=== PATIENT | male | born 1940 | race Caucasian/White ===

== ENCOUNTER 2018-02-17 10:01 | Day surgery (SDC) | payer MEDICARE, BC ==
[2018-02-12 10:55] LABS: BASOPHILS % (AUTO) 0.4 % (0-1); EOSINOPHILS # (AUTO) 0.4 X10'3 (0-0.9); EOSINOPHILS % (AUTO) 5.8 % (0-6); LYMPHOCYTES # (AUTO) 1.6 X10'3 (1.1-4.8); LYMPHOCYTES % (AUTO) 21.2 % (21-51); MEAN CORPUSCULAR HEMOGLOBIN 30.8 PG (27.0-31.0); MEAN CORPUSCULAR HGB CONC 34.3 % (33.0-36.5); MEAN CORPUSCULAR VOLUME 89.8 FL (78-98); MEAN PLATELET VOLUME 8.3 FL (7.4-10.4); MONOCYTES # (AUTO) 0.6 X10'3 (0-0.9); MONOCYTES % (AUTO) 7.7 % (2-12); NEUTROPHILS # (AUTO) 4.8 X10'3 (1.8-7.7); NEUTROPHILS % (AUTO) 64.9 % (42-75); PRE OP HEMATOCRIT 38.8 % (42.0-52.0); PRE OP HEMOGLOBIN 13.3 g/dL (14.0-17.9); PRE OP PLATELET COUNT 234 X10'3 (140-440); RED BLOOD COUNT 4.32 X10'6 (4.70-6.10); RED CELL DISTRIBUTION WIDTH 13.9 % (11.5-14.5)
[2018-02-12 11:07] LABS: PRE OP INR 1.1 INR; PRE OP PROTIME 11.4 SECONDS (9.0-12.0)
[2018-02-12 11:08] LABS: ALBUMIN 3.2 G/DL (3.4-5.0); BLOOD UREA NITROGEN 26 MG/DL (7-18); BUN/CREATININE RATIO 12.5 (5.4-32.0); CALCIUM 8.9 MG/DL (8.5-10.1); CHLORIDE 104 MMOL/L (99-107); CREATININE 2.08 MG/DL (0.60-1.10); PRE OP ANION GAP 8 (8-16); PRE OP GLUCOSE 189 MG/DL (70-104); PRE OP POTASSIUM 3.8 MMOL/L (3.4-5.1); PRE OP SODIUM 140 MMOL/L (135-145); TOTAL CARBON DIOXIDE 28.2 MMOL/L (24-32); eGFR 31 ML/MIN
[~2018-02-17] VITALS: Ht 175.3 cm; Wt 101.5 kg
[~2018-02-17 10:01] MED LIST: ASPI81TA30 PO; ATOR-2 PO; BENA20TA2 PO; FINA5TAB11 PO; LEVO25TA7 PO; METO50TA17 PO; TERA10CA4 PO
[2018-02-17] MEDS ORDERED: AMIO200T57 PO (10:41)
[2018-02-17] MEDS ORDERED: APIX5TAB3 PO (10:41)
[2018-02-17] MEDS ORDERED: SENN-93 PO (10:41)
[2018-02-17] MEDS ORDERED: normal saline 1000ml 1,000 ML IV SCH (10:50)
[2018-02-17] MEDS ORDERED: fentaNYL/PF 50MCG/1 ML 2ML syringe IV ONE (10:50)
[2018-02-17] MEDS ORDERED: MIDAZolam 5mg/ml 2ml vial IV ONE (10:50)
[2018-02-17 11:00] VITALS: BP 113/46
== END 2018-02-17 19:38 | disposition home or self-care (01) ==
LOC: SSTAY O 10:01
PROVIDERS: ATTEND Internal Medicine Interventional Cardiology
DX: I48.3 Typical atrial flutter (principal); I35.0 Nonrheumatic aortic (valve) stenosis; I10 Essential (primary) hypertension; I25.10 Atherosclerotic heart disease of native coronary artery without angina pectoris; E78.00 Pure hypercholesterolemia, unspecified; G89.29 Other chronic pain; I25.2 Old myocardial infarction; I70.211 Atherosclerosis of native arteries of extremities with intermittent claudication, right leg; E11.59 Type 2 diabetes mellitus with other circulatory complications; Z53.8 Procedure and treatment not carried out for other reasons; Z95.1 Presence of aortocoronary bypass graft; Z86.74 Personal history of sudden cardiac arrest; Z79.01 Long term (current) use of anticoagulants; Z79.82 Long term (current) use of aspirin; Z87.891 Personal history of nicotine dependence; Z79.899 Other long term (current) drug therapy
CPT/HCPCS: 36415; 80048; 85025; 85610; 85730; 93005; J7030; A4620

== ENCOUNTER 2020-07-04 18:33 | Emergency (ER) | payer MEDICARE, BC ==
[~2020-07-04] VITALS: Ht 177.8 cm; Wt 109.1 kg
[~2020-07-04 18:33] MED LIST changes: +AMIO200T61 PO; +APIX5TAB3 PO; +LIDOcaine 1% W/epiNEPHrine 1:200,000 10ml vial ONE; +SENN-93 PO
[2020-07-04 18:41] VITALS: BP 119/83
== END 2020-07-04 20:39 | disposition home or self-care (01) ==
LOC: ER 18:34
DX: S81.812A Laceration without foreign body, left lower leg, initial encounter (principal); S80.812A Abrasion, left lower leg, initial encounter; R58 Hemorrhage, not elsewhere classified; I25.10 Atherosclerotic heart disease of native coronary artery without angina pectoris; I10 Essential (primary) hypertension; I25.2 Old myocardial infarction; E11.9 Type 2 diabetes mellitus without complications; Z98.890 Other specified postprocedural states; Z79.82 Long term (current) use of aspirin; Z79.899 Other long term (current) drug therapy; X58.XXXA Exposure to other specified factors, initial encounter; Y93.89 Activity, other specified; Y92.89 Other specified places as the place of occurrence of the external cause; Y99.8 Other external cause status
CPT/HCPCS: 12002; 99282

== ENCOUNTER 2020-07-13 10:31 | Emergency (ER) | payer MEDICARE, BC ==
[~2020-07-13] VITALS: Ht 177.8 cm; Wt 108.2 kg
[~2020-07-13 10:31] MED LIST changes: -LIDOcaine 1% W/epiNEPHrine 1:200,000 10ml vial ONE
[2020-07-13 11:33] VITALS: BP 127/93
== END 2020-07-13 12:05 | disposition home or self-care (01) ==
LOC: ER 10:31
DX: S91.012D Laceration without foreign body, left ankle, subsequent encounter (principal); I25.10 Atherosclerotic heart disease of native coronary artery without angina pectoris; I10 Essential (primary) hypertension; I25.2 Old myocardial infarction; E11.9 Type 2 diabetes mellitus without complications; Z95.1 Presence of aortocoronary bypass graft; Z98.890 Other specified postprocedural states; Z79.01 Long term (current) use of anticoagulants; Z79.899 Other long term (current) drug therapy; Z48.02 Encounter for removal of sutures
CPT/HCPCS: 99281

== ENCOUNTER 2020-07-20 17:23 | Emergency (ER) | payer MEDICARE, BC ==
[~2020-07-20] VITALS: Ht 177.8 cm; Wt 108.2 kg
[2020-07-20 18:00] VITALS: BP 137/66
== END 2020-07-20 18:33 | disposition home or self-care (01) ==
LOC: ER 17:23
DX: S91.012D Laceration without foreign body, left ankle, subsequent encounter (principal); I25.10 Atherosclerotic heart disease of native coronary artery without angina pectoris; I10 Essential (primary) hypertension; I25.2 Old myocardial infarction; E11.9 Type 2 diabetes mellitus without complications; Z95.1 Presence of aortocoronary bypass graft; Z48.02 Encounter for removal of sutures; Z98.890 Other specified postprocedural states; Z79.01 Long term (current) use of anticoagulants; Z72.89 Other problems related to lifestyle; Z79.899 Other long term (current) drug therapy
CPT/HCPCS: 99281

== ENCOUNTER 2022-04-28 15:52 | Emergency (ER) | payer MEDICARE, BC ==
[~2022-04-28] VITALS: Ht 177.8 cm; Wt 104.5 kg
[2022-04-28 16:03] VITALS: BP 150/61
[2022-04-28] MEDS ORDERED: LIDOcaine 1% 30ml preserv. free vial SQ STA (16:44)
--- NOTE | 2022-04-28 17:46 | NUR ---
DRESSING APPLIED TO SUTURE REPAIR SITE
== END 2022-04-28 17:48 | disposition home or self-care (01) ==
LOC: ER 15:53
DX: S61.216A Laceration without foreign body of right little finger without damage to nail, initial encounter (principal); I25.10 Atherosclerotic heart disease of native coronary artery without angina pectoris; I10 Essential (primary) hypertension; I25.2 Old myocardial infarction; E11.9 Type 2 diabetes mellitus without complications; Z95.5 Presence of coronary angioplasty implant and graft; Z79.82 Long term (current) use of aspirin; Z79.899 Other long term (current) drug therapy; W27.0XXA Contact with workbench tool, initial encounter; Y93.89 Activity, other specified; Y92.89 Other specified places as the place of occurrence of the external cause; Y99.8 Other external cause status
CPT/HCPCS: 12001; 73140; 99283; J3490

== ENCOUNTER 2022-05-05 13:18 | Emergency (ER) | payer MEDICARE, BC ==
[~2022-05-05] VITALS: Ht 172.7 cm; Wt 103.0 kg
[2022-05-05 13:30] VITALS: BP 137/71
== END 2022-05-05 15:33 | disposition left against medical advice (07) ==
LOC: ER 13:19
DX: Z48.00 Encounter for change or removal of nonsurgical wound dressing (principal); Z53.21 Procedure and treatment not carried out due to patient leaving prior to being seen by health care provider

== ENCOUNTER 2022-05-06 10:29 | Emergency (ER) | payer MEDICARE, BC ==
[~2022-05-06] VITALS: Ht 174 cm; Wt 106.4 kg
[2022-05-06 10:49] VITALS: BP 133/105
== END 2022-05-06 11:20 | disposition home or self-care (01) ==
LOC: ER 10:32
DX: S61.216D Laceration without foreign body of right little finger without damage to nail, subsequent encounter (principal); I11.9 Hypertensive heart disease without heart failure; E11.9 Type 2 diabetes mellitus without complications; Z79.899 Other long term (current) drug therapy; Z48.00 Encounter for change or removal of nonsurgical wound dressing
CPT/HCPCS: 99284

== ENCOUNTER 2024-02-05 14:29 | Emergency (ER) | payer MEDICARE, BC ==
[~2024-02-05] VITALS: Ht 177.8 cm; Wt 100.0 kg
[~2024-02-05 14:29] MED LIST changes: +AMI200T PO; -AMIO200T61 PO; +AMOX-580 PO; +APIX2.5T PO; -APIX5TAB3 PO; -ASPI81TA30 PO; -ATOR-2 PO; +FLO0.4C PO; +FURO-150 PO; -LEVO25TA7 PO; +LEVO50TA8 PO; +PIOG30TA71 PO; +ROSU40TA22 PO
[2024-02-05 17:16] LABS: BILIRUBIN,URINE NEGATIVE (Neg); CLARITY,URINE SLIGHTLY CLOUDY (Clear); COLOR,URINE YELLOW (Yellow); GLUCOSE, URINE NEGATIVE (Neg); KETONES,URINE NEGATIVE (Neg); LEUKOCYTE ESTERASE ,URINE TRACE (Neg); NITRITES, URINE NEGATIVE (Neg); OCCULT BLOOD,URINE NEGATIVE (Neg); PROTEIN,URINE NEGATIVE (Neg); UROBILINOGEN,URINE 0.2 E.U/dL (0.2-1.0)
[2024-02-05 17:57] LABS: AMORPHOUS URATES 1+; SQUAMOUS EPITHELIAL CELL,UR MANY /LPF (FEW); UA COLLECTION TYPE NON-SPECIFIED
[2024-02-05 17:58] LABS: BACTERIA,URINE FEW /HPF (Neg); RBC,URINE 0-2 /HPF (0-2)
[2024-02-05 19:10] VITALS: BP 114/59; PULSE 90; RESP 18; TEMP 97.6; O2SAT 98
[2024-02-06] MEDS ORDERED: HYDR-3965 PO (11:27)
== END 2024-02-05 19:12 | disposition home or self-care (01) ==
LOC: ER 14:29
DX: M51.36 Other intervertebral disc degeneration, lumbar region (principal); I10 Essential (primary) hypertension; E11.9 Type 2 diabetes mellitus without complications; Z79.899 Other long term (current) drug therapy; Z79.2 Long term (current) use of antibiotics
CPT/HCPCS: 72148; 81001; 99284

== ENCOUNTER 2024-06-19 06:22 | Emergency (ER) | payer MEDICARE, BC ==
[~2024-06-19] VITALS: Ht 177.8 cm; Wt 100.0 kg
[~2024-06-19 06:22] MED LIST changes: -ROSU40TA22 PO; +ROSU40TA71 PO
[2024-06-19 06:31] VITALS: TEMP 98.2
[2024-06-19 07:00] VITALS: BP 138/53
[2024-06-19 07:59] LABS: BASOPHILS % (AUTO) 0.5 % (0-1); EOSINOPHILS # (AUTO) 0.3 X10'3 (0-0.9); EOSINOPHILS % (AUTO) 5.1 % (0-6); HEMATOCRIT 32.9 % (42.0-52.0); HEMOGLOBIN 10.7 g/dl (14.0-17.9); LYMPHOCYTES # (AUTO) 1.1 X10'3 (1.1-4.8); LYMPHOCYTES % (AUTO) 19.9 % (21-51); MEAN CORPUSCULAR HEMOGLOBIN 30.8 PG (27.0-31.0); MEAN CORPUSCULAR HGB CONC 32.5 g/dL (33.0-36.5); MEAN CORPUSCULAR VOLUME 94.8 FL (78-98); MEAN PLATELET VOLUME 8.1 FL (7.4-10.4); MONOCYTES # (AUTO) 0.4 X10'3 (0-0.9); NEUTROPHILS # (AUTO) 3.6 X10'3 (1.8-7.7); NEUTROPHILS % (AUTO) 66.5 % (42-75); PLATELET COUNT 143 X10'3 (140-440); RED BLOOD COUNT 3.48 X10'6 (4.70-6.10); RED CELL DISTRIBUTION WIDTH 14.7 % (11.5-14.5); WHITE BLOOD COUNT 5.4 X10'3 (4.5-11.0)
[2024-06-19 08:18] LABS: ALANINE AMINOTRANSFERASE 22 U/L (12-78); ALBUMIN 3.3 G/DL (3.4-5.0); ALBUMIN/GLOBULIN RATIO 0.9 (1.1-1.5); ALKALINE PHOSPHATASE 69 IU/L (46-116); ANION GAP 7 (8-16); ASPARTATE AMINO TRANSFERASE 14 U/L (10-37); BILIRUBIN,TOTAL 0.8 MG/DL (0.1-1.0); BLOOD UREA NITROGEN 43 MG/DL (7-18); BUN/CREATININE RATIO 16.7 (10.0-20.0); CALCIUM 9.3 MG/DL (8.5-10.1); CHLORIDE 106 MMOL/L (99-107); CREATININE 2.58 MG/DL (0.60-1.10); GLUCOSE 97 MG/DL (70-104); POTASSIUM 3.5 MMOL/L (3.5-5.1); SODIUM 140 MMOL/L (135-145); TOTAL CARBON DIOXIDE 26.8 MMOL/L (24-32); TOTAL PROTEIN 6.9 G/DL (6.4-8.2); eCRCL 22 ML/MIN; eGFR 24 ML/MIN
[2024-06-19 08:26] LABS: PRO BRAIN NATRIURETIC PEPTIDE 3177 PG/ML (0-450)
[2024-06-19 10:12] VITALS: PULSE 53; RESP 16; O2SAT 100
== END 2024-06-19 10:16 | disposition home or self-care (01) ==
LOC: ER 06:22
DX: R07.9 Chest pain, unspecified (principal); I25.10 Atherosclerotic heart disease of native coronary artery without angina pectoris; E11.9 Type 2 diabetes mellitus without complications; I25.2 Old myocardial infarction; I48.91 Unspecified atrial fibrillation; I10 Essential (primary) hypertension; G89.29 Other chronic pain; M54.9 Dorsalgia, unspecified; F17.200 Nicotine dependence, unspecified, uncomplicated; Z79.899 Other long term (current) drug therapy; Z79.2 Long term (current) use of antibiotics; Z95.1 Presence of aortocoronary bypass graft; Z98.890 Other specified postprocedural states
CPT/HCPCS: 36415; 71045; 80053; 83880; 84484; 85025; 93005; 99285

== ENCOUNTER 2024-08-31 16:35 | Emergency (ER) | payer MEDICARE, BC ==
[~2024-08-31] VITALS: Ht 175.3 cm; Wt 97.4 kg
[2024-08-31 16:43] VITALS: BP 139/59; PULSE 67; RESP 18; TEMP 97.1; O2SAT 100
[2024-08-31] MEDS ORDERED: CEPH-585 PO (17:41)
== END 2024-08-31 17:49 | disposition home or self-care (01) ==
LOC: ER 16:36
DX: S51.012A Laceration without foreign body of left elbow, initial encounter (principal); I25.10 Atherosclerotic heart disease of native coronary artery without angina pectoris; I10 Essential (primary) hypertension; I25.2 Old myocardial infarction; E11.9 Type 2 diabetes mellitus without complications; Z95.1 Presence of aortocoronary bypass graft; Z79.899 Other long term (current) drug therapy; Z79.2 Long term (current) use of antibiotics; W18.39XA Other fall on same level, initial encounter; Y93.89 Activity, other specified; Y92.89 Other specified places as the place of occurrence of the external cause; Y99.8 Other external cause status
CPT/HCPCS: 99284; A6223; A6258; A6402; A6446; J7030; A6449

== ENCOUNTER 2024-09-02 12:34 | Emergency (ER) | payer MEDICARE, BC ==
[~2024-09-02] VITALS: Ht 177.8 cm; Wt 74.0 kg
[~2024-09-02 12:34] MED LIST changes: +CEPH-585 PO
[2024-09-02] MEDS: bacitracin 15gm ointment TP ONE (13:15)
[2024-09-02 13:16] VITALS: BP 148/86; PULSE 84; RESP 18; TEMP 98.9; O2SAT 98
[2024-09-02] MEDS: TETanus/Pertussis (Acell)/Diphther VAC/PF (Tdap-Adult) 0.5ml syringe IMVAC ONE (13:16)
== END 2024-09-02 13:19 | disposition home or self-care (01) ==
LOC: ER 12:34
DX: S40.922D Unspecified superficial injury of left upper arm, subsequent encounter (principal); I25.10 Atherosclerotic heart disease of native coronary artery without angina pectoris; I10 Essential (primary) hypertension; I25.2 Old myocardial infarction; E11.9 Type 2 diabetes mellitus without complications; Z95.1 Presence of aortocoronary bypass graft; Z98.890 Other specified postprocedural states; Z79.899 Other long term (current) drug therapy; Z79.2 Long term (current) use of antibiotics; X58.XXXD Exposure to other specified factors, subsequent encounter
CPT/HCPCS: 99282; A6223; A6258; A6446; A6449

== ENCOUNTER 2025-03-25 12:25 | Emergency (ER) | payer MEDICARE, BC ==
[~2025-03-25] VITALS: Ht 177.8 cm; Wt 91.6 kg
[~2025-03-25 12:25] MED LIST changes: -AMI200T PO; -AMOX-580 PO; -APIX2.5T PO; -BENA20TA2 PO; -CEPH-585 PO; -FINA5TAB11 PO; -FURO-150 PO; -METO50TA17 PO; +PANT40TA54 PO; -ROSU40TA71 PO; +ROSU40TA89 PO; -TERA10CA4 PO
[2025-03-25 12:42] VITALS: TEMP 97
--- NOTE | 2025-03-25 12:52 | ELECTROCARDIOGRAPH REPORT ---
[facility] Test Date: 2025-03-25 Test Time: 12:49:59 Pat Name: ARIAN FREEMAN Department: [facility] Patient ID: [id number] Room: Gender: M New Accounts Representative: : 1940 Requested By: GONZALEZ ALEXANDER Order Number: [id number] Reading MD: Dr. Kashif Lira Measurements Intervals [place] Rate: 64 P: 0 [place]: 0 QRS: -7 QRSD: 127 T: -70 QT: 403 QTc: 416 Interpretive Statements Afib/flut and V-paced complexes No further rhythm analysis attempted due to paced rhythm Right bundle branch block Nonspecific T abnormalities, lateral leads Electronically Signed On 03-25-2025 18:40:[address] Kashif Lira Please click the below link to view image of tracing.
[2025-03-25 13:19] LABS: BASOPHILS % (AUTO) 0.9 % (0-1); EOSINOPHILS # (AUTO) 0.2 X10'3 (0-0.9); EOSINOPHILS % (AUTO) 2.9 % (0-6); HEMATOCRIT 26.8 % (42.0-52.0); HEMOGLOBIN 8.6 g/dl (14.0-17.9); LYMPHOCYTES % (AUTO) 18.6 % (21-51); MEAN CORPUSCULAR HEMOGLOBIN 28.5 PG (27.0-31.0); MEAN CORPUSCULAR HGB CONC 32.2 g/dL (33.0-36.5); MEAN CORPUSCULAR VOLUME 88.6 FL (78-98); MEAN PLATELET VOLUME 7.4 FL (7.4-10.4); MONOCYTES # (AUTO) 0.5 X10'3 (0-0.9); MONOCYTES % (AUTO) 8.3 % (2-12); NEUTROPHILS # (AUTO) 3.8 X10'3 (1.8-7.7); NEUTROPHILS % (AUTO) 69.3 % (42-75); PLATELET COUNT 219 X10'3 (140-440); RED BLOOD COUNT 3.03 X10'6 (4.70-6.10); RED CELL DISTRIBUTION WIDTH 16.6 % (11.5-14.5); WHITE BLOOD COUNT 5.5 X10'3 (4.5-11.0)
[2025-03-25 13:40] LABS: ALANINE AMINOTRANSFERASE 37 U/L (12-78); ALBUMIN 3.3 G/DL (3.4-5.0); ALBUMIN/GLOBULIN RATIO 0.9 (1.1-1.5); ALKALINE PHOSPHATASE 75 IU/L (46-116); ANION GAP 6 (8-16); ASPARTATE AMINO TRANSFERASE 23 U/L (10-37); BILIRUBIN,TOTAL 0.8 MG/DL (0.1-1.0); BLOOD UREA NITROGEN 30 MG/DL (7-18); BUN/CREATININE RATIO 10.9 (10.0-20.0); CALCIUM 9.5 MG/DL (8.5-10.1); CHLORIDE 102 MMOL/L (99-107); CREATININE 2.75 MG/DL (0.60-1.10); GLUCOSE 140 MG/DL (70-104); PRO BRAIN NATRIURETIC PEPTIDE 4475 PG/ML (0-450); SODIUM 139 MMOL/L (135-145); TOTAL CARBON DIOXIDE 30.7 MMOL/L (24-32); TOTAL PROTEIN 6.8 G/DL (6.4-8.2); eCRCL 21 ML/MIN; eGFR 22 ML/MIN
[2025-03-25 13:43] LABS: PLATELET ESTIMATE NORMAL; POTASSIUM 2.9 MMOL/L (3.5-5.1)
[2025-03-25 13:44] LABS: ANISOCYTOSIS 1+
[2025-03-25 13:48] LABS: HYPOCHROMASIA 1+
[2025-03-25 14:27] VITALS: RESP 12; O2SAT 97
[2025-03-25 14:38] VITALS: BP 90/64; PULSE 60
[2025-03-25 15:05] LABS: MAGNESIUM 2.4 MG/DL (1.5-2.4)
[2025-03-25] MEDS: potassium Cl 20 mEq SR tablet PO STA (15:12)
[2025-03-25] MEDS: ringers solution, lacted 1,000 ML IV ONE (15:19)
[2025-03-25] MEDS: potassium bicarbonate/cit acid 25mEq tablet.effervescent PO ONE (15:47)
--- NOTE | 2025-03-25 16:28 | Physician Documentation ---
History of Present Illness ~ Chief Complaint: Dizziness Stated Complaint: "DIZZY LOSS OF INTERNAL BLOOD" PER PT Time Seen by MD: 14:10 OK to notify your PCP?: Yes Primary Medical Doctor: Tino Schroeder Mode of Arrival: Ambulatory HPI an 85-year-old male with a history of CAD s/p CABG, CHF, atrial fibrillation, s/p pacemaker placement about a month ago came to the ER after he was notified by his primary care about low blood counts and was told to go to the hospital immediately. His hemoglobin at the time of admission was 6.8. He then was admitted on March 14 and upper endoscopy was done the next day and it showed bleeding gastritis. The patient then was discharged from the hospital on 16 of March and at that time his hemoglobin is 7.8 BUN is 38 creatinine 2.7. Patient had slight loose stool couple of days and he is feeling little bit dizzy last night and this morning. That is why he came here. At the same time he was told to hold his Eliquis for two weeks. He tried to call his primary care and there was no response. He was concerned about that. Medication Reconciliation Allergies: Coded Allergies: No Known Allergies (Unverified , 03/25/25) Scheduled Levothyroxine Sodium (Levothyroxine Sodium), 1 TAB PO QAM, (Reported) Pantoprazole Sodium (Pantoprazole Sodium), 40 MG PO BID Pioglitazone Hcl (Pioglitazone Hcl), 1 TAB PO QAM, (Reported) Rosuvastatin Calcium (Rosuvastatin Calcium), 1 TAB PO DAILY, (Reported) Sennosides/Docusate Sodium (Stool Softener Tablet), 2 EACH PO DAILY, (Reported) Tamsulosin Hcl (Flomax), 0.4 MG PO HS, (Reported) Past Medical History Past Medical History: Coronary Artery Disease, Hypertension, Myocardial Infarction, Diabetes Past Surgical History: coronary bypass surgery, other Patient History: FH: cancer FH: heart attack Alcohol Use: None Drug Use: none Lives with: Family Lives In: Home Review of Systems ROS As well as other positive symptoms noted in the HPI. Otherwise all other systems are reviewed and negative. Physical Exam Vital Signs: Temperature: 97.0, Source: Temporal, Heart Rate: 60, Respiratory Rate: 12, BP: 90/64, Pulse Oximetry: 97, Weight: 91.600 Oxygen Flow Rate: 0 Physical Exam Vital signs reviewed and they are well within normal range except blood pressure was slightly low. Const: Patient is not in any distress cooperative and jovial. Head: Atraumatic Eyes: Normal Conjunctiva ENT: Normal External Ears, Nose and Mouth. Moist mucous membranes Neck: Full range of motion. No meningismus Resp: Clear to auscultation bilaterally. Normal work of breathing Cardio: Regular rate and rhythm, no murmurs. Skin well perfused Abd: Soft, non-tender, non-distended. Normal bowel sounds. No rebound or guarding Rectal examination does not reveal any melanotic stool or bloody stool. And occult blood is negative. Skin: No petechiae or rashes. Warm and dry Back: No midline or flank tenderness Ext: No cyanosis, or edema Neuro: Awake and alert Psych: Normal Mood and Affect Progress Results/Orders Results/Orders Orders - GONZALEZ ALEXANDER MD Monitor (03/25/25 12:46) Saline Lock (03/25/25 12:46) Oxygen (03/25/25 12:46) Cbc/Diff (03/25/25 12:46) Pathology Review (03/25/25 13:08) Completed Orders - GONZALEZ ALEXANDER MD PBNP (03/25/25 12:46) Electrocardiogram (03/25/25 12:46) CMP (03/25/25 12:46) Potassium Cl Sr Tablet (K-Dur Tablet) (03/25/25 14:42) Potassium Bicarb/Cit Acid Tab (K-Lyte Ta (03/25/25 14:45) MG (03/25/25 13:08) Ringers Solution, Lacted (Lactated Ringe (03/25/25 15:00) Medications Received in ER Medications (Trade) Dose Ordered Sig/Isidoro Route PRN Reason Start Time Stop Time Status Last Admin Dose Admin (K-DUR tablet) 40 meq ONCE STAT PO 03/25/25 14:42 03/25/25 14:49 DC 03/25/25 15:12 40 MEQ (K-Lyte tablet, effervescent) 25 meq STAT ONCE PO 03/25/25 14:45 03/25/25 14:48 DC 03/25/25 15:47 25 MEQ Lactated Ringer's 1,000 ml @ 1,000 mls/hr ONCE ONCE IV 03/25/25 15:00 03/25/25 15:59 DC 03/25/25 15:19 1,000 MLS/HR Vital Signs 03/25/25 03/25/25 03/25/25 03/25/25 12:42 14:27 14:38 14:50 Temp 97.0 Pulse 64 60 60 60 60 Resp 16 12 B/P (MAP) 115/48 128/57 (80) 121/60 121/56 90/64 Pulse Ox 100 97 O2 Flow Rate 0 0 Laboratory Tests Test 03/25/25 13:08 White Blood Count 5.5 Red Blood Count 3.03 L Hemoglobin 8.6 L Hematocrit 26.8 L Mean Corpuscular Volume 88.6 Mean Corpuscular Hemoglobin 28.5 Mean Corpuscular Hemoglobin Concent 32.2 L Red Cell Distribution Width 16.6 H Platelet Count 219 Mean Platelet Volume 7.4 Neutrophils (%) (Auto) 69.3 Lymphocytes (%) (Auto) 18.6 L Monocytes (%) (Auto) 8.3 Eosinophils (%) (Auto) 2.9 Basophils (%) (Auto) 0.9 Neutrophils # (Auto) 3.8 Lymphocytes # (Auto) 1.0 L Monocytes # (Auto) 0.5 Eosinophils # (Auto) 0.2 Basophils # (Auto) 0.0 CBC Comment Platelet Estimate Normal Red Blood Cell Morphology Perf Hypochromasia 1+ Basophilic Stippling Anisocytosis 1+ Sodium Level 139 Potassium Level 2.9 *L Chloride Level 102 Carbon Dioxide Level 30.7 Anion Gap 6 L Blood Urea Nitrogen 30 H Creatinine 2.75 H Estimated GFR/1.73 m2 22 BUN/Creatinine Ratio 10.9 Glucose Level 140 H Calcium Level 9.5 Magnesium Level 2.4 Total Bilirubin 0.8 Aspartate Amino Transf (AST/SGOT) 23 Alanine Aminotransferase (ALT/SGPT) 37 Alkaline Phosphatase 75 Pro-B-Type Natriuretic Peptide 4475 H Total Protein 6.8 Albumin 3.3 L Globulin 3.5 Albumin/Globulin Ratio 0.9 L Chemistry Comments Medical Decision Making Findings During the physical examination, the findings suggestive of acute life- threatening condition such as JVD, tracheal deviation, acidotic breathing, noisy stridorous breath sounds, pulses paradoxus, muffled heart sounds, unequal breath sounds, abdominal rigidity and rebound tenderness, focal neurological deficits, cool clammy skin, severe hypotension, severe tachycardia or bradycardia are absent. His hemoglobin is 8.6 and hematocrit 26.8 with normal platelet count and WBC count. His BUN is 30 creatinine is 2.75. The only thing abnormal is potassium 2.9 which is not unexpected with the diarrhea. His diarrhea has stopped. We did orthostatic vital signs and he is orthostatic therefore he has got 1 L out lactated ringer intravenously. He was given p.o. potassium because of concern for potassium retention with his CKD. Patient is feeling improved after the treatment. He will be discharged from the emergency room with instruction to follow up with primary care provider and his cathode builder coming week. After two weeks time, he can resume his Eliquis on March 30. DISCLAIMER Inadvertent spelling and grammatical errors,inadvertent recreation instructor errors,syntax errors, grammatical errors, and spelling errors are likely due to EMR/dictation software use and do not reflect on the overall quality of patient care. Note that the electronic time recorded on this note does not necessarily reflect the actual time of the patient encounter. Departure Disposition: 01 HOME / SELF CARE / HOMELESS Impression: Primary Impression: Diarrhea Additional Impressions: Dizziness Hypokalemia Condition: Stable Discharge Instructions: Dizziness Additional Instructions: Thank you so much for visiting [facility] Emergency room. Please ask your nurse or provider if you have questions about your care today a nd do not leave until all your questions have been answered. Please use any medications given as directed and follow-up with your doctor in the next 1-3 days. You may also use motrin and tylenol as needed for pain unless instructed otherwise by your provider or nurse. Indications for more urgent follow-up have been discussed, but you may return to the Emergency Department at ANY time for any worrisome or worsening symptoms. Please see your primary care provider as well as your cathode builder next week. You can resume your Eliquis on March 30. Referrals: NO PRIMARY CARE PROVIDER (PCP) Prescriptions Diphenoxylate HCl/Atropine (Lomotil 2.5-0.025 mg Tablet) 2.5 Mg-0.025 Mg Tablet 1 TAB PO Q6H PRN for diarrhea for 5 Days, #20 TAB 0 Refills Take one tablet after each loose stool and maximum eight in 24 hours. Prov: GONZALEZ ALEXANDER MD 03/25/25 Signature Scribe Signature: x Attestation: GONZALEZ Parker MD March 25, 2025 16:28
[2025-03-25] MEDS ORDERED: DIPH-186 PO (16:42)
== END 2025-03-25 17:04 | disposition home or self-care (01) ==
LOC: ER 12:26
DX: R19.7 Diarrhea, unspecified (principal); R42 Dizziness and giddiness; I11.0 Hypertensive heart disease with heart failure; I50.9 Heart failure, unspecified; I25.10 Atherosclerotic heart disease of native coronary artery without angina pectoris; I25.2 Old myocardial infarction; E11.9 Type 2 diabetes mellitus without complications; E87.6 Hypokalemia; I48.91 Unspecified atrial fibrillation; Z95.1 Presence of aortocoronary bypass graft; Z95.0 Presence of cardiac pacemaker; Z79.899 Other long term (current) drug therapy
CPT/HCPCS: 36415; 80053; 83735; 83880; 85008; 85025; 93005; 96360; 99284; J7120

== ENCOUNTER 2025-07-13 08:40 | Day surgery (SDC) | payer MEDICARE, BC ==
[2025-07-04 14:45] LABS: MEAN PLATELET VOLUME 7.6 FL (7.4-10.4); PRE OP HEMATOCRIT 35.9 % (42.0-52.0); PRE OP HEMOGLOBIN 11.9 g/dL (14.0-17.9); PRE OP PLATELET COUNT 210 X10'3 (140-440); PRE OP WHITE BLOOD COUNT 7.9 10'3 (4.8-10.8); RED CELL DISTRIBUTION WIDTH 19.3 % (11.5-14.5)
[2025-07-04 15:04] LABS: LARGE PLATELETS FEW; PLATELET ESTIMATE NORMAL
[2025-07-04 15:24] LABS: CREATININE 2.66 MG/DL (0.60-1.10); PRE OP ALT 26 U/L (30-65); PRE OP ANION GAP 8 (8-16); PRE OP AST 27 U/L (10-37); PRE OP BILIRUB, TOTAL 0.7 MG/DL (0.0-1.0); PRE OP GLUCOSE 94 MG/DL (70-104); PRE OP POTASSIUM 3.7 MMOL/L (3.4-5.1); PRE OP SODIUM 139 MMOL/L (135-145); TOTAL CARBON DIOXIDE 28.1 MMOL/L (24-32); eGFR 23 ML/MIN
[2025-07-13] VITALS (13 sets, daily range): BP systolic 120–148; BP diastolic 58–77; PULSE 60–65; RESP 10–16; TEMP 97.3; O2SAT 98–100
[~2025-07-13] VITALS: Ht 172.7 cm; Wt 90.3 kg
[2025-07-13] MEDS: ceFAZolin 2gm/dext,iso 50mL 50 ML IV ONE (05:30)
[~2025-07-13 08:40] MED LIST changes: +FERR-39 PO; +FURO20TA4 PO; -PANT40TA54 PO; -PIOG30TA71 PO; -SENN-93 PO; +iohexol 300 MG/1 ML 50ml polymer ONE
[2025-07-13] MEDS ORDERED: enalaprilat 1.25mg/ml 2ml vial IV PRN (08:50)
[2025-07-13] MEDS ORDERED: meperidine/PF 25mg/ml syringe IV PRN ×3 (08:50)
[2025-07-13] MEDS ORDERED: morphine 4 MG/ML inj SYRINge IV PRN (08:50)
[2025-07-13] MEDS ORDERED: labetalol 20mg/4ml (5mg/ml) syringe IV PRN (08:50)
[2025-07-13] MEDS ORDERED: ringers solution, lacted 1,000 ML IV SCH (08:50)
[2025-07-13] MEDS ORDERED: ondansetron/PF 4mg/2ml inj IV PRN (08:50)
[2025-07-13] MEDS: ringers solution, lacted 1,000 ML IV SCH (09:18)
[2025-07-13] MEDS: iohexol 300 MG/1 ML 50ml polymer IV ONE (10:51)
[2025-07-13] MEDS ORDERED: fentaNYL/PF 50MCG/1 ML 2ML syringe ONE (11:02)
[2025-07-13] MEDS ORDERED: midazolam 1 mg/ML 2ml injection ONE (11:02)
[2025-07-13] MEDS ORDERED: propofol inj 20 ML IV ONE (11:07)
[2025-07-13] MEDS ORDERED: LIDOcaine 2% (20mg/ml) 5ml vial ONE (11:07)
[2025-07-13] MEDS ORDERED: ondansetron/PF 4mg/2ml inj ONE (11:15)
[2025-07-13] MEDS ORDERED: dexamethasone sod phosphate 4mg/ml inj. ONE (11:15)
--- NOTE | 2025-07-13 14:06 | OPERATIVE REPORT ---
Operative Report Providers to ~ Date of Procedure: Jul 13, 2025 Pre-Operative Diagnosis: Bladder stone Post-Operative Diagnosis SAME as PRE-Op Procedure Performed Cystolithopaxy Surgeon: MD Booker Credit Analyst None Type of Anesthesia: General Findings: Large 1.5 cm bladder stone completely treated and removed. Complications None Prosthetics\Implants used: None Estimated Blood Loss: Minimal Specimen Removed: None Description of Procedure: Patient was brought to the operating room, given a general anesthetic and placed in the dorsal lithotomy position. He was prepped and draped in the normal sterile fashion. A timeout was performed. A 26 malian resectoscope was inserted via urethra. The stone was seen in the posterior of the bladder. The laser was used to completely fragment the stone at which point all fragments were removed via the scope. The bladder was drained of urine and the cystoscope was removed via urethra. This driscoll the end of the procedure. SCOOTER GONZALEZ MD Jul 13, 2025 14:06
== END 2025-07-13 13:43 | disposition home or self-care (01) ==
LOC: PAS 08:40
PROVIDERS: ATTEND Urology
DX: N21.0 Calculus in bladder (principal); I10 Essential (primary) hypertension; E03.9 Hypothyroidism, unspecified; I48.91 Unspecified atrial fibrillation; Z87.891 Personal history of nicotine dependence; Z79.890 Hormone replacement therapy; Z79.899 Other long term (current) drug therapy; Z95.1 Presence of aortocoronary bypass graft; Z98.41 Cataract extraction status, right eye; Z98.42 Cataract extraction status, left eye; Z98.890 Other specified postprocedural states
CPT/HCPCS: 36415; 52317; 80053; 82948; 85025; A4338; A4618; A6258; A7000; C1758; C1769; J1100; J2003; J2250; J2405; J2704; J3010; J7030; J7120; Z7506; Z7512; Z7610; 85008; Q9967

== ENCOUNTER 2025-09-05 14:20 | Emergency (ER) | payer MEDICARE, BC ==
[~2025-09-05] VITALS: Ht 172.7 cm; Wt 93.6 kg
[~2025-09-05 14:20] MED LIST changes: -iohexol 300 MG/1 ML 50ml polymer ONE
[2025-09-05 14:32] VITALS: TEMP 97.8
[2025-09-05 15:38] LABS: MEAN PLATELET VOLUME 7.9 FL (7.4-10.4); RED CELL DISTRIBUTION WIDTH 17.4 % (11.5-14.5)
[2025-09-05 15:54] LABS: CREATININE 2.46 MG/DL (0.60-1.10); TOTAL CARBON DIOXIDE 28.1 MMOL/L (24-32); eCRCL 22 ML/MIN; eGFR 25 ML/MIN
[2025-09-05 18:48] VITALS: BP 157/73; PULSE 89; RESP 18; O2SAT 94
--- NOTE | 2025-09-05 19:19 | Physician Documentation ---
History of Present Illness ~ Chief Complaint: See Chief Complaint Stated Complaint: KIDNEY STONE Time Seen by MD: 19:14 Primary Medical Doctor: Tino Schroeder HPI Patient presents to the emergency room with chief complaint of dysuria. He has history of kidney stones requiring lithotripsy and he states that he feels this is what is going on. He states that that has significant other noted that his semen that has granular few days ago. No fevers. Denies back pain. Denies any new sexual partners Medication Reconciliation Allergies: Coded Allergies: No Known Allergies (Unverified , 09/05/25) Scheduled Ferrous Sulfate (Ferrous Sulfate), 1 TAB PO Q12H, (Reported) Furosemide (Furosemide), 1 TAB PO DAILY, (Reported) Levothyroxine Sodium (Levothyroxine Sodium), 1 TAB PO QAM, (Reported) Rosuvastatin Calcium (Rosuvastatin Calcium), 1 TAB PO DAILY, (Reported) Tamsulosin Hcl (Flomax), 0.4 MG PO HS, (Reported) Past Medical History Past Medical History: Coronary Artery Disease, Hypertension, Myocardial Infarction, Diabetes Past Surgical History: coronary bypass surgery, other Patient History: FH: cancer FATHER FH: heart attack MOTHER Alcohol Use: Rarely Drug Use: none Lives with: Family Lives In: Home Review of Systems ROS All review of systems negative except as per HPI Physical Exam Vital Signs: Temperature: 97.8, Source: Temporal, Heart Rate: 89, Respiratory Rate: 18, BP: 157/73, Pulse Oximetry: 94, Weight: 93.640 Oxygen Flow Rate: 0 Physical Exam General: Patient is awake, alert, oriented x4 in no acute distress and well appearing.~ Head: Normocephalic and atraumatic. Eyes: Conjunctival normal. EOMI. PERRL. ENT: Mucous membranes moist. Neck: Supple, trachea is midline. Chest: Clear to auscultation bilaterally without rales, rhonchi, or wheezes. There is no accessory muscle use or retractions. Cardiac: RRR without murmurs, gallops, or rubs. Abd: Soft, nondistended, nontender, with normoactive bowel sounds. No guarding, rebound, or rigidity. : Normal circumcised external genitalia without discharge or palpable mass Progress Results/Orders Results/Orders Completed Orders - JONE GIRARD MD Ua W/Microscopic, Cult If Ind (09/05/25 19:30) Phenazopyridine Tablet (Pyridium Tablet) (09/05/25 19:55) Vital Signs 09/05/25 09/05/25 14:32 18:48 Temp 97.8 Pulse 63 89 Resp 18 18 B/P (MAP) 138/56 157/73 (101) Pulse Ox 99 94 O2 Flow Rate 0 Laboratory Tests Test 09/05/25 15:18 09/05/25 19:30 White Blood Count 6.9 Red Blood Count 4.53 L Hemoglobin 12.8 L Hematocrit 39.7 L Mean Corpuscular Volume 87.6 Mean Corpuscular Hemoglobin 28.3 Mean Corpuscular Hemoglobin Concent 32.3 L Red Cell Distribution Width 17.4 H Platelet Count 200 Mean Platelet Volume 7.9 Neutrophils (%) (Auto) 70.4 Lymphocytes (%) (Auto) 14.7 L Monocytes (%) (Auto) 7.6 Eosinophils (%) (Auto) 6.1 H Basophils (%) (Auto) 1.2 H Neutrophils # (Auto) 4.8 Lymphocytes # (Auto) 1.0 L Monocytes # (Auto) 0.5 Eosinophils # (Auto) 0.4 Basophils # (Auto) 0.1 CBC Comment Sodium Level 142 Potassium Level 4.1 Chloride Level 106 Carbon Dioxide Level 28.1 Anion Gap 8 Blood Urea Nitrogen 46 H Creatinine 2.46 H Estimated GFR/1.73 m2 25 BUN/Creatinine Ratio 18.7 Glucose Level 123 H Calcium Level 9.6 Total Bilirubin 0.7 Aspartate Amino Transf (AST/SGOT) 20 Alanine Aminotransferase (ALT/SGPT) 33 Alkaline Phosphatase 103 Total Protein 7.3 Albumin 3.5 Globulin 3.8 Albumin/Globulin Ratio 0.9 L Chemistry Comments Urine Specimen Description Cln catch midstream Urine Color Yellow Urine Clarity Clear Urine pH 6.0 Urine Specific [place] 1.020 Urine Protein 100 H Urine Glucose (UA) 500 H Urine Ketones Negative Urine Occult Blood Moderate H Urine Nitrite Negative Urine Bilirubin Negative Urine Urobilinogen 0.2 Urine Leukocyte Esterase Negative Urine RBC 0-2 Urine WBC None seen Urine Squamous Epithelial Cells None seen Urine Bacteria Few Urine Culture Indicated Not ind Volume Urine Centrifuged 10 ml Urine Comment Medical Decision Making Findings Patient presents to the emergency room for evaluation of dysuria. Differentials include but are not limited to urinary tract infection, kidney stone, dehyd ration, fungal infection therefore emergent labs ordered which were reassuring. No evidence of kidney injury and urinalysis is negative for infection. Some blood seen on urinalysis. Possible very small kidney stones. Patient is able to urinate without limitations aside from pain and that has no back pain he had not feel he requires CT scan. We will treat him with Pyridium. Diff Dx GI Bleed:Consideration: Include: AE fistula, Angiodysplasia, Bleeding diathesis, Blood loss anemia, Carcinoma, Diverticulosis, Diverticulitis, Esophageal varicies, Esophagitis, Gastritis, Gastroenteritis, Inflammatory BD, Jessica-Magallanes syndrome, Meckel's diverticulum, PUD, Other Diff Dx Pain:Considerations: Include: AAA, Angina/DE, Aortic dissection, Appendicitis, Bowel obstruction, Cholangitis, Cholecystitis, Cholelithasis, Constipation, Diverticular disease, Esophageal rupture, Esophagitis, Gastritis, Gastroenteritis, GI hemorrhage, Hepatitis, Hernia, Inflammatory BD, Ischemic bowel, Mass, Pancreatitis, Porphyria, PUD, Testicular torsion, Trauma, intraabdominal, Urinary obstruction, Urinary tract infection, Urolithiasis, Other Diff Dx N/V/D:Considerations: Include: Appendicitis, Bowel obstruction, Dehydration, DKA, Diarrhea - bacterial, Diarrhea - parasitic, Diarrhea - viral, Diverticulitis, Diverticulosis, Drug toxicity, Electrolyte imbalance, Food poisoning, Gastroenteritis, GE reflux, GI bleed, Hepatitis, Hernia, Hypovolemia, Hypotension, Inflammatory BD, Impaction, Malnutrition, Pancreatitis, PUD, Renal failure, Urinary obstruction, UTI, Urolithiasis, Other Diff Dx Rectal:Considerations: Include: Fissure, Fistula, Foreign body, Impaction, Perirectal abscess, Prostatitis, Rectal prolapse, Subcutaneous abscess, Thrombosed hemorrhoid, Ulcer, UTI, Other Departure Disposition: 01 HOME / SELF CARE / HOMELESS Impression: Primary Impression: Dysuria Condition: Stable Discharge Instructions: Dysuria Referrals: NO PRIMARY CARE PROVIDER (PCP) Prescriptions Phenazopyridine HCl (Pyridium) 200 Mg Tablet 1 TAB PO Q8H for urinary discomfort for 3 Days, #9 TAB 0 Refills Prov: JONE GIRARD MD 09/05/25 Signature Scribe Signature: No scribe Attestation: The note accurately reflects work and decisions made by me.Jone Girard MD 09/05/25 20:02 JONE GIRARD MD Sep 05, 2025 19:19
[2025-09-05 19:41] LABS: LEUKOCYTE ESTERASE ,URINE NEGATIVE (Neg); NITRITES, URINE NEGATIVE (Neg); OCCULT BLOOD,URINE MODERATE (Neg)
[2025-09-05 19:46] LABS: UA COLLECTION TYPE CLN CATCH MIDSTREAM
[2025-09-05 19:51] LABS: SQUAMOUS EPITHELIAL CELL,UR NONE SEEN /LPF (FEW)
[2025-09-05] MEDS ORDERED: PHEN-716 PO (20:02)
[2025-09-05] MEDS: phenazopyridine 100mg tablet PO ONE (20:04)
== END 2025-09-05 20:11 | disposition home or self-care (01) ==
LOC: ER 14:21
DX: N20.0 Calculus of kidney (principal); I25.10 Atherosclerotic heart disease of native coronary artery without angina pectoris; I10 Essential (primary) hypertension; E11.9 Type 2 diabetes mellitus without complications; I25.2 Old myocardial infarction; Z87.442 Personal history of urinary calculi; Z95.1 Presence of aortocoronary bypass graft; Z79.899 Other long term (current) drug therapy
CPT/HCPCS: 36415; 80053; 81001; 85025; 99283

== ENCOUNTER 2025-09-22 20:36 | Emergency (ER) | payer MEDICARE, BC ==
[~2025-09-22] VITALS: Ht 172.7 cm; Wt 100.0 kg
[~2025-09-22 20:36] MED LIST changes: +PHEN-716 PO
[2025-09-22 20:39] VITALS: TEMP 98.6
[2025-09-22] MEDS: LidoCAINE 2% Topical Jelly 11mL syringe (UROJET) TOP ONE (22:30)
--- NOTE | 2025-09-22 22:37 | Physician Documentation ---
History of Present Illness ~ Chief Complaint: Urinary Symptoms Stated Complaint: URINE RETENTION Time Seen by MD: 22:29 Primary Medical Doctor: Tino Schroeder HPI Patient presents to the emergency room with inability urinate. Onset of symptoms this afternoon. He does have history of bladder stone requiring lithotripsy by Dr. Celeste a few months ago. He was seen here by myself two weeks ago for dysuria. Urinalysis was clear at that time with trace amount of blood. No fevers. He has since seen by outside clinic who diagnosed him with a urinary tract infection and put him on Macrobid. Medication Reconciliation Allergies: Coded Allergies: No Known Allergies (Unverified , 09/22/25) Scheduled Ferrous Sulfate (Ferrous Sulfate), 1 TAB PO Q12H, (Reported) Furosemide (Furosemide), 1 TAB PO DAILY, (Reported) Levothyroxine Sodium (Levothyroxine Sodium), 1 TAB PO QAM, (Reported) Phenazopyridine HCl (Pyridium), 1 TAB PO Q8H Rosuvastatin Calcium (Rosuvastatin Calcium), 1 TAB PO DAILY, (Reported) Tamsulosin Hcl (Flomax), 0.4 MG PO HS, (Reported) Past Medical History Past Medical History: Coronary Artery Disease, Hypertension, Myocardial Infarction, Diabetes Past Surgical History: coronary bypass surgery, other Patient History: FH: cancer FATHER FH: heart attack MOTHER Alcohol Use: Rarely Drug Use: none Lives with: Family Lives In: Home Review of Systems ROS All review of systems negative except as per HPI Physical Exam Vital Signs: Temperature: 98.6, Source: Temporal, Heart Rate: 70, Respiratory Rate: 15, BP: 160/67, Pulse Oximetry: 100, Weight: 100.000 Physical Exam General: Patient is awake, alert, oriented x4 in no acute distress Head: Normocephalic and atraumatic. Eyes: Conjunctival normal. EOMI. PERRL. ENT: Mucous membranes moist. Neck: Supple, trachea is midline. Chest: Clear to auscultation bilaterally without rales, rhonchi, or wheezes. There is no accessory muscle use or retractions. Cardiac: RRR without murmurs, gallops, or rubs. Abd: Soft, fullness to suprapubic area with tenderness to palpation. Progress Results/Orders Results/Orders Completed Orders - JONE MESA MD * (A) Snider- Protocol * Q12H@07,19 (09/22/25 22:29) Lidocaine 2% Jelly 11ml Syr (Glydo-Lidoc (09/22/25 22:30) Cbc/Diff (09/23/25 00:04) BMP (09/23/25 00:04) Ua W/Microscopic, Cult If Ind (09/23/25 02:00) Vital Signs 09/22/25 09/23/25 20:39 02:24 Temp 98.6 Pulse 70 68 Resp 15 16 B/P (MAP) 160/67 128/74 Pulse Ox 100 98 Laboratory Tests Test 09/23/25 01:33 09/23/25 02:00 White Blood Count 10.2 Red Blood Count 4.29 L Hemoglobin 12.4 L Hematocrit 37.2 L Mean Corpuscular Volume 86.8 Mean Corpuscular Hemoglobin 28.9 Mean Corpuscular Hemoglobin Concent 33.2 Red Cell Distribution Width 15.9 H Platelet Count 212 Mean Platelet Volume 7.3 L Neutrophils (%) (Auto) 67.6 Lymphocytes (%) (Auto) 12.3 L Monocytes (%) (Auto) 7.7 Eosinophils (%) (Auto) 12.0 H Basophils (%) (Auto) 0.4 Neutrophils # (Auto) 6.9 Lymphocytes # (Auto) 1.3 Monocytes # (Auto) 0.8 Eosinophils # (Auto) 1.2 H Basophils # (Auto) 0.0 CBC Comment Sodium Level 141 Potassium Level 3.3 L Chloride Level 107 Carbon Dioxide Level 26.3 Anion Gap 8 Blood Urea Nitrogen 38 H Creatinine 2.67 H Estimated GFR/1.73 m2 23 BUN/Creatinine Ratio 14.2 Glucose Level 106 H Calcium Level 9.2 Albumin 3.3 L Chemistry Comments Urine Specimen Description Cln catch midstream Urine Color Yellow Urine Clarity Clear Urine pH 6.0 Urine Specific [place] 1.015 Urine Protein 100 H Urine Glucose (UA) >=1000 H Urine Ketones Negative Urine Occult Blood Large H Urine Nitrite Negative Urine Bilirubin Negative Urine Urobilinogen 1.0 Urine Leukocyte Esterase Negative Urine RBC 10-20 Urine WBC 0-4 Urine Squamous Epithelial Cells Few Urine Transitional Epithelial Cells Few Urine Bacteria None seen Urine Mucus None seen Urine Culture Indicated Not ind Volume Urine Centrifuged 10 ml Urine Comment Medical Decision Making Additional information obtaine: old records Findings Patient is status post Snider catheter placement by Dr. Juárez, urologist. Our attempts in the emergency room were unsuccessful. Urinary Diff Dx:Considerations: Include: AAA, Aortic dissection, Appendicitis, Appendicitis train, Bowel obstruction, Bladder outlet obstruc., Cholelithiasis, Choleangitis, Cholecystitis, DJD, Epididymitis, Hepatitis, HNP, Impaction, Musculoskeletal pain, Pancreatitis, Postoperative Comp., Prostatitis, Pyelonephritis, Renal failure, Renal infarction, Strain, Urolithiasis, Urinary Obstruction, Urethritis, Urinary retention, UTI, Other Genital Diff Dx:Considerations: Include: Abscess, Balanitis, Balanoposthitis, Cellulitis, Epididymitis, Entrapment injury, Norma's gangrene, Foreign body, Facture penis, Hydrocele, Inguinal hernia, Post-op Complication, Paraphimosis, Prostatitis, Priapism, Syphilis, Testicular torsion, Torsion-epididymis, Torsion-appendiceal, Urinary retention, Urethritis, Urethritis-chlamydial, Urethritis-gonococcal, UTI, Other Departure Disposition: HOME / SELF CARE / HOMELESS Impression: Primary Impression: Acute urinary retention Condition: Improved Discharge Instructions: Acute Urinary Retention, Male Additional Instructions: Call your urologist tomorrow to arrange for follow up. Continue your antibiotic Referrals: NO PRIMARY CARE PROVIDER (PCP) Signature Scribe Signature: No scribe Attestation: The note accurately reflects work and decisions made by me.Jone Mesa MD 09/23/25 05:23 JONE MESA MD Sep 22, 2025 22:37
--- NOTE | 2025-09-23 00:49 | CONSULTATION REPORT ---
History of Present Illness Providers to CC ~ Refering : Tino Schroeder History of Present Illness 85-year-old white male with coronary artery disease presenting in urinary retention. He had some sort of procedure two months ago with Dr. Celeste were bladder stones were removed. He has been unable to urinate since about 4:00 p.m.. Attempts at catheter placement by nursing staff have been unsuccessful. Procedure summary his genitals were prepped and draped in sterile fashion. The urethra was entered with a flexible digital cystoscope and we appreciated a severe proximal pendulous urethral stricture. There was really no identifiable lumen and only a wisp be translucent membrane at the very bottom of his pendulous urethra. Probing with a wire initially failed to identify a lumen but through multiple repeated stubborn attempts the wire finally passed through this translucent membrane which was then fully advanced toward the bladder. We offloaded the scope and with an eight Guyanese dilator went over our wire and with the wire removed crystal clear urine was produced. With the wire replaced we then sequentially dilated to 20 Guyanese after which we placed a 16 Guyanese modified catheter over the wire into the bladder. 10 mL were instilled into the retaining balloon and the catheter was secured to his right medial thigh. With the wire removed the catheter was placed to gravity drainage and 800 mL of clear yellow urine were produced. Allergies: Coded Allergies: No Known Allergies (Unverified , 09/22/25) Home Medications Home Medications Active Pyridium (Phenazopyridine HCl) 200 Mg Tablet 1 Tab PO Q8H 3 Days Reported Ferrous Sulfate 325 Mg (65 Mg Iron) Tablet 1 Tab PO Q12H 30 Days Furosemide 20 Mg Tablet 1 Tab PO DAILY Flomax (Tamsulosin HCl) 0.4 Mg Cap.sr.24h 0.4 Mg PO HS FROM JUN 2023 Rosuvastatin Calcium 40 Mg Tablet 1 Tab PO DAILY FROM JUL 2023 Levothyroxine Sodium 50 Mcg Tablet 1 Tab PO QAM FROM JUL 2023 Past Medical History Medical History Comment Coronary artery disease with myocardial infarction Past Surgical History Surgical History Comment Cystolitholapaxy Past Family History Family History Comment Noncontributory Family History: FH: cancer FATHER FH: heart attack MOTHER Past Social History Social History Comment Denies substance abuse Physical Exam Last Vital Signs Recorded: RN Vital Signs have been reviewed: Yes, Temperature: 98.6, Source: Temporal, Heart Rate: 70, Respiratory Rate: 15, BP: 160/67, Pulse Oximetry: 100, Weight: 100.000 General Appearance: alert, moderate distress EENT: PERRL/EOMI Neck: normal inspection Respiratory: no respiratory distress Chest: accessory muscle use Cardiovascular: normal peripheral pulses Gastrointestinal: normal palpation Genitalia: normal Rectal: deferred Back: no CVA tenderness Extremities: normal range of motion Neurologic: oriented x4 Psychiatric: normal mood/affect, anxiety Skin: normal color Lymphatic: no adenopathy Review of Systems ROS ROS Comments: Normal 12 system review Assessment/Plan Problems/Diagnosis: (1) Urethral stricture Additional Plan The patient will keep his urinary catheter and follow up with Dr. Celeste as an outpatient for further management. Problem Qualifiers (1) Urethral stricture: Qualified Codes: N99.114 - Postprocedural urethral stricture, male, unspecified JB ESCOBAR MD Sep 23, 2025 00:49
[2025-09-23 02:04] LABS: MEAN PLATELET VOLUME 7.3 FL (7.4-10.4); RED CELL DISTRIBUTION WIDTH 15.9 % (11.5-14.5)
[2025-09-23 02:24] VITALS: BP 128/74; PULSE 68; RESP 16; O2SAT 98
[2025-09-23 02:38] LABS: LEUKOCYTE ESTERASE ,URINE NEGATIVE (Neg); OCCULT BLOOD,URINE LARGE (Neg)
[2025-09-23 02:41] LABS: CREATININE 2.67 MG/DL (0.60-1.10); TOTAL CARBON DIOXIDE 26.3 MMOL/L (24-32); eCRCL 20 ML/MIN; eGFR 23 ML/MIN
[2025-09-23 02:50] LABS: UA COLLECTION TYPE CLN CATCH MIDSTREAM
[2025-09-23 02:51] LABS: NITRITES, URINE NEGATIVE (Neg)
[2025-09-23 03:03] LABS: MUCUS STRANDS NONE SEEN /LPF (Neg); SQUAMOUS EPITHELIAL CELL,UR FEW /LPF (FEW)
== END 2025-09-23 02:26 | disposition home or self-care (01) ==
LOC: ER 20:37
DX: R33.9 Retention of urine, unspecified (principal); I25.10 Atherosclerotic heart disease of native coronary artery without angina pectoris; I10 Essential (primary) hypertension; E11.9 Type 2 diabetes mellitus without complications; I25.2 Old myocardial infarction; Z79.899 Other long term (current) drug therapy; Z95.1 Presence of aortocoronary bypass graft
CPT/HCPCS: 36415; 80048; 81001; 85025; 99284; A4314; A4358